=== PATIENT | female | born 1950 | race American Indian/Alaskan Native ===

== ENCOUNTER 2018-02-12 22:13 | Observation (INO) | payer OTHER ==
[2018-02-12] MEDS: morphine 4 MG/ML VIAL IV (22:31)
[2018-02-12] MEDS: ONDANSETRON 4 MG INJ IV (22:31)
[2018-02-12] MEDS: SOD CHLORIDE 0.9% 1,000 ML IV (22:32)
[2018-02-12 22:43] LABS: ADD MAN DIFF? NO
[2018-02-12 22:46] LABS: WHITE BLOOD COUNT 6.6 10^3/ul (4.8-10.8)
[2018-02-12 22:46] LABS: BASOPHILS % 0.2 % (0.0-2.0); EOSINOPHILS # 0.2 10^3/ul (0.0-0.5); EOSINOPHILS % 2.3 % (0.0-7.0); HEMATOCRIT 35.9 % (37.0-47.0); HEMOGLOBIN 11.9 g/dl (12.0-16.0); LYMPHOCYTES % 29.9 % (15.0-51.0); MEAN CORPUSCULAR HGB CONC 33.1 g/dl (32.0-37.0); MEAN CORPUSCULAR VOLUME 90.4 fl (82.0-101.0); MEAN PLATELET VOLUME 10.3 fl (7.4-10.4); MONOCYTE # 0.6 10^3/ul (0.3-0.9); MONOCYTES % 8.6 % (0.0-11.0); NEUTROPHIL # 3.9 10^3/ul (1.6-7.5); NEUTROPHILS % 58.4 % (39.0-77.0); PLATELET COUNT 191 10^3/UL (140-415); RED BLOOD COUNT 3.97 10^6/ul (4.20-5.40); RED CELL DISTRIBUTION WIDTH 13.4 % (11.5-14.5)
[2018-02-12 23:04] LABS: ANION GAP 13 (8-16); BLOOD UREA NITROGEN 23 mg/dl (7-20); CALCIUM 9.6 mg/dl (8.4-10.2); CARBON DIOXIDE 24 mmol/L (21-31); CHLORIDE 110 mmol/L (97-110); CREATININE 1.07 mg/dl (0.44-1.00); GLUCOSE 155 mg/dl (70-220); SODIUM 143 mmol/L (135-144)
[2018-02-12 23:06] LABS: INR 0.91; PARTIAL THROMBOPLASTIN TIME 27.6 Sec (25.0-35.0); PROTIME 12.3 Sec (11.9-14.9)
[2018-02-12] MEDS: KETOROLAC 15 MG INJ IV (23:11)
[2018-02-12] MEDS: FENTAnyl 50 MCG/ML VIAL IV (23:11)
[2018-02-12] MEDS: PROPOFOL 100 ML IV (23:11)
[2018-02-13] MEDS ORDERED: hydrALAzine 20 MG INJ IV (02:00)
[2018-02-13] MEDS ORDERED: ACETAMINOPHEN 325 MG TAB PO ×2 (02:00→12:30)
[2018-02-13] MEDS: morphine 2 MG INJ IV ×2 (02:30→07:36)
[2018-02-13] MEDS: HYDROCODONE/APAP (5/325) TAB PO ×2 (04:45→04:55)
[2018-02-13] MEDS: AMLODIPINE 5 MG TAB PO (08:38)
[2018-02-13] MEDS: BENAZEPRIL 40 MG TAB PO (08:38)
[2018-02-13] MEDS: ATENOLOL 25 MG TAB PO (08:40)
[2018-02-13] MEDS ORDERED: ONDANSETRON 4 MG INJ IV (12:30)
[2018-02-13] MEDS ORDERED: NACL 0.9% 3 ML SYG IV (12:30)
[2018-02-13] MEDS ORDERED: BISACODYL 10 MG SUPP PR (12:30)
[2018-02-13] MEDS ORDERED: MAGNESIUM HYDROXIDE 30ML CUP PO (12:30)
[2018-02-13] MEDS ORDERED: DOCUSATE SODIUM 100 MG CAP PO (12:30)
[2018-02-13] MEDS: ONDANSETRON 4 MG INJ IV (13:26)
== END 2018-02-13 21:00 | disposition home or self-care (01) ==
LOC: E/R 22:13 → MS1 02-13 00:11
DX: S42.292A Other displaced fracture of upper end of left humerus, initial encounter for closed fracture (principal); W10.9XXA Fall (on) (from) unspecified stairs and steps, initial encounter; I25.10 Atherosclerotic heart disease of native coronary artery without angina pectoris; I12.9 Hypertensive chronic kidney disease with stage 1 through stage 4 chronic kidney disease, or unspecified chronic kidney disease; N18.2 Chronic kidney disease, stage 2 (mild); E78.5 Hyperlipidemia, unspecified; Z86.73 Personal history of transient ischemic attack (TIA), and cerebral infarction without residual deficits
CPT/HCPCS: 23575; 36415; 71045; 73030; 80048; 85025; 85610; 85730; 94770; 96374; 96375; 99285-25